=== PATIENT | male | born 1970 | race Caucasian/White ===

== ENCOUNTER 2017-01-25 19:35 | Emergency (ER) | payer SELFPAY ==
[~2017-01-25] VITALS: Ht 180.3 cm; Wt 111.6 kg
[~2017-01-25 19:35] MED LIST: METO25 PO
[2017-01-25 19:38] VITALS: BP 204/124; PULSE 104; RESP 20; TEMP 97.8; O2SAT 98
[2017-01-25] MEDS ORDERED: LISI2.5T3 PO (19:55)
[2017-01-25] MEDS ORDERED: METO25TA3 PO (19:55)
--- NOTE | 2017-01-25 20:00 | PD ---
HPI Chief Complaint: Skin Problem Time Seen by Provider: 19:43 Travel History International Travel<30 days: No Contact w/Intl Traveler<30days: No Traveled to known affect area: No History of Present Illness HPI patient is a 46-year-old male presents to emergency department with a 5 day history of redness and swelling to his left lower extremity. Patient denies any fevers, he states that he has had infections like this before and Bactrim as worked well for him in the past. 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 History of HIV or diabetes. He supposed be on metoprolol and lisinopril but skipped his medicines today because there is redness made him very nervous. Otherwise he feels fairly well, denies any significant pain. Gradually worsening context as above location as above, associated signs symptoms as above PFSH Past Medical History Arthritis: No Asthma: No Bipolar Disorder: Yes Heart Rhythm Problems: No Cardiovascular Problems: Yes (HTN) High Cholesterol: No Chest Pain: No Congestive Heart Failure: No COPD: No Cerebrovascular Accident: No Diminished Hearing: No GERD: No Genitourinary: No Hiatal Hernia: No Hypertension: Yes Inguinal Hernia: Yes (HERNIA REPAIR) Kidney Stones: No Musculoskeletal: No Neurologic: No Respiratory: No Immunizations Current: No Migraines: No Renal Failure: No Schizophrenia: Yes Seizures: No Sleep Apnea: No Ulcer: No Past Surgical History Abdominal Surgery: Yes (HERNIA REPAIR) Cardiac Surgery: No Ear Surgery: No Endocrine Surgery: No Eye Surgery: No Genitourinary Surgery: No Oral Surgery: No Thoracic Surgery: No Other Surgery: Yes Social History Alcohol Use: Yes (OCCASIONALLY) Tobacco Use: No Substance Use: No Allergies-Medications (Allergen,Severity, Reaction): Coded Allergies: penicillin G (Unverified Allergy, Mild, UNKNOWN, 01/25/17) *MDRO Multi-Drug Resistant Organism (Unverified Adverse Reaction, Unknown , 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 SKIN: Focused skin assessment warm/dry. HEAD: Atraumatic. Normocephalic. EYES: Pupils equal and round. No scleral icterus. No injection or drainage. ENT: No nasal bleeding or discharge. Mucous membranes pink and moist. NECK: Trachea midline. No JVD. CARDIOVASCULAR: Regular rate and rhythm. No murmur appreciated. RESPIRATORY: No accessory muscle use. Clear to auscultation. Breath sounds equal bilaterally. GASTROINTESTINAL: Abdomen soft, non-tender, nondistended. Hepatic and splenic margins not palpable. MUSCULOSKELETAL: No obvious deformities. No clubbing. No cyanosis. Left lower extremity There is 2+ pitting edema from the patella distally, erythema from the mid tibia distally over the anterior surface stopping at the proximal dorsal foot. There is a small scratch over the medial malleolus. No discernible abscess collection is felt. Minimally increased temperature compared to surrounding skin. Right lower extremity is atraumatic and normal. Full nontender range of motion all joints of the bilateral lower extremities, NEUROLOGICAL: Awake and alert. No obvious cranial nerve deficits. Motor grossly within normal limits. Normal speech. PSYCHIATRIC: Appropriate mood and affect; insight and judgment normal. Data Data Last Documented VS Vital Signs Date Time Temp Pulse Resp B/P (MAP) Pulse Ox O2 Delivery O2 Flow Rate FiO2 01/25/17 21:49 01/25/17 21:24 93 16 97 Room Air 01/25/17 19:38 97.8 Orders Orders Us Leg Venous Doppler (01/25/17 ) Clindamycin (Cleocin) (01/25/17 21:45) Ed Discharge Order (01/25/17 21:37) [facility] Medical Decision Making Medical Screen Exam Complete: Yes Emergency Medical Condition: Yes Differential Diagnosis Cellulitis, DVT, abscess unlikely, sepsis is excluded clinically. Narrative Course Patient roomed emergency department, notably hypertensive and mildly tachycardic , patient did miss his beta edgar and RONALD inhibitor doses this evening. Discussed that he needs to take these negative, follow-up his blood pressure was primary care physician. The patient does have significant edema of his left lower extremity and I recommended to him that he have an ultrasound however appears as though his symptoms are more likely from moderate cellulitis. The cellulitis is not circumferential, it is appropriate for a trial of outpatient therapy, given that he is on RONALD inhibitor Bactrim would be relatively contraindicated, clindamycin as an a decent option. He was given a dose in the emergency department and prescription to take as an outpatient. Discussed symptomatic management returned ED criteria as well as follow-up with his primary care physician. He is stable for discharge. Last 24 hours Impressions Lower Extremity Ultrasound 01/25/17 0000 Signed Impressions: Service Date/Time: Wednesday, January 25, 2017 21:07 - CONCLUSION: 1. Negative for deep venous thrombosis. Subcutaneous edema present. Mitch Dueñas MD Diagnosis Primary Impression: Cellulitis Med/Other Pt SpecificInfo: Prescription(s) given Scripts Clindamycin (Clindamycin) 150 Mg Cap 300 MG PO Q6H for Infection for 10 Days, #80 CAP 0 Refills Prov: Kevyn Giron MD 01/25/17 Disposition: 01 DISCHARGE HOME Condition: Stable Kevyn Giron MD Jan 25, 2017 20:00
[2017-01-25 21:24] VITALS: BP 189/106; PULSE 93; RESP 16; O2SAT 97
--- NOTE | 2017-01-25 21:33 | RADRPT ---
EXAM DATE/TIME: 01/25/2017 21:07 [facility] COMPARISON: No previous studies available for comparison. INDICATIONS : Left leg swelling. MEDICAL HISTORY : Hypertension. Bipolar disorder. Depression. Anxiety. Sbustance use. MRSA. Vancomycin-resistant E nterococci. SURGICAL HISTORY : Right inguinal hernia repair. Right knee effusion aspiration. ENCOUNTER: Initial ACUITY: 1 week PAIN SCORE: 5/10 LOCATION: Left leg. TECHNIQUE: Venous ultrasound of the leg was performed from the inguinal ligament to the proximal calf. Real-david e, color Doppler and spectral tracing, compression and augmentation techniques were used. FINDINGS: There is normal compressibility of the deep venous system from the inguinal region to the proximal ca lf. No echogenic clot is seen in the lumen of the common femoral, femoral, popliteal, and posterior tibial veins. There is a normal response of the venous system to proximal and distal augmentation an d respiration. CONCLUSION: 1. Negative for deep venous thrombosis. Subcutaneous edema present. Mitch Dueñas MD on January 25, 2017 at 21:30 Board Certified Radiologist. This report was verified electronically.
[2017-01-25] MEDS ORDERED: CLIN150C14 PO (21:37)
[2017-01-25] MEDS ORDERED: CLINDAMYCIN 150 MG CAP PO ONE (21:45)
== END 2017-01-25 21:50 | disposition home or self-care (01) ==
LOC: PHED 19:35
DX: L03.116 Cellulitis of left lower limb (principal); I10 Essential (primary) hypertension; M79.89 Other specified soft tissue disorders
CPT/HCPCS: 93971